=== PATIENT | male | born 2000 | race African-American/Black ===

== ENCOUNTER 2022-04-17 17:04 | Emergency (ER) | payer OTHER, SELFPAY ==
--- NOTE | 2022-04-17 17:06 | ED.URI ---
HPI - URI/Sore Throat General Chief Complaint: Upper Respiratory Infection Stated Complaint: sore throat Time Seen by Provider: 04/17/22 17:06 Source: patient and RN notes reviewed History of Present Illness HPI Narrative: Patient is a 21-year-old male who presents to urgent care with complaints of sore throat for 2 days, low-grade fever and coughing. Patient states he took sea dangelo supplement and cough drops. Denies any vomiting, abdominal pain, headaches or ill exposures. No other acute complaints. No acute distress noted. Patient aware of the plan of care. Some parts of this dictation were generated by voice recognition software and may contain typographical and/or grammatical inaccuracies. Related Data Home Medications Medication Instructions Recorded Confirmed No Home Medications 04/17/22 04/17/22 Allergies Allergy/AdvReac Type Severity Reaction Status Date / Time No Known Allergies Allergy Unverified 04/17/22 17:14 Review of Systems Review of Systems: CONSTITUTIONAL: Reports of fever EYES: Denies visual changes, redness, or discharge. ENT: Denies rhinorrhea, congestion, otalgia. Reports a sore throat CARDIOVASCULAR: Denies chest pain, palpitations, or edema. RESPIRATORY: Reports of cough GASTROINTESTINAL: Denies abdominal pain, nausea, vomiting, or diarrhea. GENITOURINARY: Denies dysuria or hematuria. SKIN: Denies rash or itching. MUSCULOSKELETAL: Denies back pain, joint pain, or myalgia. NEUROLOGIC: Denies headache, numbness, or weakness. All other systems reviewed are negative, except as documented in HPI. PMFSH Comments At the time of my signature, I reviewed and agree with the nursing past medical, surgical, social, and family history. There is no relevant family history pertinent to the patient complaint. Exam Narrative: GENERAL: This is a well-nourished, well-developed patient, in no apparent distress. HEAD: normocephalic, atraumatic. EYES: PERRL. Sclera clear/white. Vision is grossly intact. EARS: External ears normal, auditory canals clear and without drainage, TMs normal without perforation. Hearing grossly intact. NOSE: External nose normal with no obvious nasal discharge, nares without redness, no rhinorrhea. THROAT: Mucous membranes moist, moderate erythema to posterior oropharynx with mild bilateral tonsillar edema and exudate noted to the right. NECK: Neck supple, non-tender without lymphadenopathy CARDIOVASCULAR: Regular rate and rhythm without murmurs, gallops, or rubs. RESPIRATORY: Clear to auscultation. Breath sounds equal bilaterally. No wheezes, rales, or rhonchi. SKIN: warm, intact with no suspicious lesions or rash, good texture and turgor. NEURO: awake, alert, and oriented to person, place and time. There were no obvious focal neurologic abnormalities. EXTREMITIES: No clubbing, cyanosis, or edema. Course Course Level of Care: Express Care Visit Vital Signs Vital signs: Vital Signs Temperature 98.6 F 04/17/22 17:10 Pulse Rate 82 04/17/22 17:10 Respiratory Rate 14 04/17/22 17:10 Blood Pressure 134/108 H 04/17/22 17:10 Pulse Oximetry 100 04/17/22 17:10 Oxygen Delivery Room Air 04/17/22 17:10 Temperature 98.6 F 04/17/22 17:10 Pulse Rate 82 04/17/22 17:10 Respiratory Rate 14 04/17/22 17:10 Blood Pressure 134/108 H 04/17/22 17:10 Pulse Oximetry 100 04/17/22 17:10 Oxygen Delivery Room Air 04/17/22 17:10 Reviewed- Patient is informed that they may have pre-hypertension or hypertension based on a blood pressure reading in the department. I recommend the patient call the primary care provider listed on their discharge instructions or a physician of their choice this week to arrange follow-up for further evaluation of possible pre-hypertension or hypertension. MDM - URI/Sore Throat MDM Narrative Medical decision making narrative: Reviewed lab results with the patient. He is aware that strep swab was negative. Educated the patient on c
[2022-04-17 17:10] VITALS: BP 134/108; PULSE 82; RESP 14; TEMP 37; O2SAT 100
== END 2022-04-17 17:40 | disposition home or self-care (01) ==
PROVIDERS: Emergency Provider Nurse Practitioner Family
DX: J02.9 Acute pharyngitis, unspecified (principal)
CPT/HCPCS: 87081; 87880; 99202; G0463